=== PATIENT | female | born 1995 | race African-American/Black ===

== ENCOUNTER 2017-09-14 16:18 | Emergency (ER) | payer OTHER ==
[~2017-09-14] VITALS: Ht 160 cm; Wt 68.0 kg
[2017-09-14] MEDS ORDERED: ZYRTEC10 MG PO (17:42)
[2017-09-14 17:48] VITALS: BP 124/72
== END 2017-09-14 17:49 | disposition home or self-care (01) ==
LOC: ER 16:18
DX: S70.361A Insect bite (nonvenomous), right thigh, initial encounter (principal); W57.XXXA Bitten or stung by nonvenomous insect and other nonvenomous arthropods, initial encounter; Y93.89 Activity, other specified; Y92.89 Other specified places as the place of occurrence of the external cause; Y99.8 Other external cause status

== ENCOUNTER 2017-12-09 14:19 | Emergency (ER) | payer OTHER ==
[~2017-12-09] VITALS: Ht 160 cm; Wt 68.0 kg
[~2017-12-09 14:19] MED LIST: CLARITIN10 MG PO; NASONEX17 GM NASAL; ZYRTEC10 MG PO
[2017-12-09] MEDS ORDERED: MAXALT MLT ODT10 M1 PO (14:35)
[2017-12-09 14:39] LABS: ABSOLUTE NEUTROPHILS 2.8 thou/uL (1.4-8.2); BASOPHILS 1.2 % (0.0-2.0); EOSINOPHILS 4.1 % (0.0-3.0); HEMATOCRIT 40.1 % (37.0-47.0); HEMOGLOBIN 13.5 gm/dL (12.0-15.0); LYMPHOCYTES 41.4 % (24.0-44.0); MCH 26.6 pg (26.0-34.0); MCHC 33.8 g/dL (28.0-37.0); MCV 78.8 fL (80.0-100.0); MONOCYTES 8.4 % (1.0-8.0); PLATELET COUNT 328 thou/uL (150-400); POLYS 44.9 % (36.0-66.0); RBC 5.08 mil/uL (4.20-5.00); RDW 15.5 % (10.5-14.5); WBC 6.3 thou/uL (4.0-11.0)
[2017-12-09 14:47] LABS: CALCIUM 10.2 mg/dL (8.5-10.1); CREATININE 0.9 mg/dL (0.6-1.0)
[2017-12-09 14:54] LABS: ALBUMIN 3.7 g/dL (3.4-5.0); TOTAL BILIRUBIN 0.2 mg/dL (<0.1-1.0); TOTAL PROTEIN 8.3 g/dL (6.4-8.2)
[2017-12-09 15:32] VITALS: BP 132/82
== END 2017-12-09 15:40 | disposition home or self-care (01) ==
LOC: ER 14:19
PROVIDERS: Emergency Medicine
DX: G43.909 Migraine, unspecified, not intractable, without status migrainosus (principal)

== ENCOUNTER 2018-01-29 16:54 | Emergency (ER) | payer OTHER ==
[~2018-01-29] VITALS: Ht 160 cm; Wt 86.2 kg
[~2018-01-29 16:54] MED LIST changes: +MAXALT MLT ODT10 M1 PO
[2018-01-29] MEDS ORDERED: AMOXICILLIN 50500 MG PO (17:46)
[2018-01-29] MEDS ORDERED: MOBIC15 MG PO (17:46)
[2018-01-29 18:05] VITALS: BP 121/50
== END 2018-01-29 18:05 | disposition home or self-care (01) ==
LOC: ER 16:54
DX: K05.30 Chronic periodontitis, unspecified (principal)